=== PATIENT | female | born 1995 | race African-American/Black ===

== ENCOUNTER 2016-12-15 19:54 | Emergency (ER) | payer OTHER ==
[2016-12-15 20:05] VITALS: BP 110/64; PULSE 84; TEMP 98.7; BMI 29.8
--- NOTE | 2016-12-15 21:24 | PDOC ---
History of Present Illness - General Chief Complaint: Vaginal Bleeding Stated Complaint: Vaginal Bleeding Time Seen by Provider: 12/15/16 20:59 History Source: Patient Exam Limitations: No Limitations - History of Present Illness Initial Comments: This is a 21 yo female with h/o sickle cell disease who presents c/o 3 days of heavy vaginal bleeding and lower abdominal cramping after taking two Plan B pills. She describes the pain as 4/10 cramping which is constant, non-radiating , and not alleviated or exacerbated by any factors. She has been bleeding bright red vaginal blood, soaking 3 large pads/day, but this is much heavier than normal for her menstrual periods. She took the Plan B pills on 12/04 and . She has take Plan B like this multiple times and never had vaginal bleeding this bad. Additionally, she notes mild upper back and shoulder pain today which is consistent with her normal sickle cell flares, but she notes frequent crises at baseline and is not concerned about this. She normally takes tramadol at home for these. Past History - Past Medical History Allergies/Adverse Reactions: Allergies Allergy/AdvReac Type Severity Reaction Status Date / Time codeine Allergy Verified 12/15/16 20:02 Home Medications: Ambulatory Orders NK [No Known Home Medication] 12/15/16 Other medical history: sickle cell disease - Psycho/Social/Smoking Cessation Hx Suicidal Ideation: No Smoking History: Never smoked Review of Systems - Review of Systems Constitutional: No: Chills, Fever, Unexplained wgt Loss HEENTM: No: Nose Congestion, Throat Pain Respiratory: No: Cough, Shortness of Breath Cardiac (ROS): No: Chest Pain, Palpitations ABD/GI: Yes: Nausea, Abdominal cramping. No: Constipated, Diarrhea, Vomiting : Yes: Other (vaginal bleeding). No: Burning, Dysuria Musculoskeletal: Yes: Back Pain (mild upper). No: Neck Pain Integumentary: No: Bruising, Rash Neurological: No: Headache, Numbness, Tingling, Weakness Endocrine: No: Unexplained Weight Gain, Unexplained Weight Loss *Physical Exam - Vital Signs Last Vital Signs Temp Pulse Resp BP Pulse Ox 98.7 F 84 18 110/64 100 12/15/16 20:03 12/15/16 20:03 12/15/16 20:03 12/15/16 20:03 12/15/16 20:03 - Physical Exam General Appearance: Yes: Nourished, Other (Pleasant young woman with supportive boyfriend at bedside). No: Apparent Distress HEENT: positive: EOMI, Normal Voice, Hearing Grossly Normal. negative: Scleral Icterus (R), Scleral Icterus (L), Nasal Congestion Neck: positive: Trachea midline, Supple. negative: Tender, Rigid Respiratory/Chest: positive: Lungs Clear, Normal Breath Sounds. negative: Respiratory Distress, Crackles, Rhonchi, Stridor, Wheezing Cardiovascular: positive: Regular Rhythm, Regular Rate. negative: Murmur Gastrointestinal/Abdominal: positive: Normal Bowel Sounds, Tender (minimal suprapubic), Soft. negative: Organomegaly, Pulsatile Mass, Guarding Musculoskeletal: positive: Normal Inspection. negative: CVA Tenderness, Decreased Range of Motion, Vertebral Tenderness Extremity: positive: Normal Capillary Refill, Normal Inspection, Normal Range of Motion. negative: Tender, Cyanosis Integumentary: positive: Normal Color, Dry, Warm. negative: Erythema, Rash, Bruising Neurologic: positive: gravity prospecting observer II-XII NML intact, Fully Oriented, Alert, Normal Mood/ Affect, Normal Response, Motor Strength 5/5 Medical Decision Making - Medical Decision Making 21 yo female with sickle cell disease p/w vaginal bleeding and menstrual cramping after taking Plan B x2. Exam notable only for minimal suprapubic tenderness. DDX includes Plan B medication side effect, UTI, dysmenorrhea, STI/STD, . Ordered are UA and urine beta-hCG, ibuprofen 600 mg. Pt's UA is unremarkable, urine is negative. Her pain is well controlled with ibuprofen here in the ED. She is counseled on common side effects of Plan B, which account for her sxs well. She wishes to be discharged home with plan to f/u with PCP, take ibuprofen for cramping. *DC/Admit/Observation/Transfer Diagnosis at time of Disposition: Dysmenorrhea Adverse effect of drug Qualifiers: Encounter type: initial encounter Qualified Code(s): T88.7XXA - Unspecified adverse effect of drug or medicament, initial encounter - Discharge Dispostion Condition at time of disposition: Stable Admit: No - Referrals Referrals: Marko Villanueva [Primary Care Provider] - - Patient Instructions Printed Discharge Instructions: DI for Dysmenorrhea Additional Instructions: You were seen today for [id number] menstrual bleeding and abdominal cramping about 1.5 weeks after taking two Plan B pills. We checked your urine for a bladder infection, and everything was normal. You also had a negative test here in the ED. We gave you 600 mg ibuprofen and discussed the side effects of Plan B, which can include menstrual irregularities (bleeding like you are currently experiencing), abdominal cramping, nausea, fatigue, etc. We believe all of your symptoms are due to the Plan B and we are not concerned about the amount of blood you have lost. Please take ibuprofen as needed for cramping, and follow up with your regular doctor for any further concerns and for longer-term control planning. Return to the ED for any further emergency concerns. - Attestations Physician Attestion: I, Dr. Stefanie Freeman, attest that this document has been prepared under my direction and personally reviewed by me in its entirety. I further attest, that it accurately reflects all work, treatment, procedures and medical decision -making performed by me.
[2016-12-15] MEDS ORDERED: IBUPROFEN 600 MG TABLET (FP) PO ONE ×2 (22:09→23:33)
--- NOTE | 2016-12-15 23:00 | PDOC ---
Attending Attestation - Resident Resident Name: Stefanie Freeman - ED Attending Attestation I have performed the following: I have examined & evaluated the patient, The case was reviewed & discussed with the resident, I agree w/resident's findings & plan, Exceptions are as noted - HPI HPI: 12/15/16 22:58 21-year-old female with history of sickle cell disease presents to ER with lower abdominal cramping and vaginal bleeding after taking to plan B capsules for post choroidal prophylaxis. Patient denies fever/chills/nausea/vomiting. Patient also complaining of mild upper back pain consistent with her previous mild sickle cell exacerbations. Patient reports that she had run out of her tramadol which she usually uses for pain control. - Physicial Exam PE: 12/15/16 22:59 Patient is awake and alert, afebrile, hemodynamically stable. Serial abdominal exams reveal no focal tenderness, there is no guarding or rebound. There is no CVA tenderness. Lungs are clear. - Medical Decision Making 12/15/16 22:59 Patient is a 21-year-old female with history of sickle cell disease who presents with abdominal cramping and vaginal bleeding take plan B. Symptoms are consistent with plan the side effects. We'll administer NSAIDs. Will obtain UA/ U hCG. If UCG negative, will likely discharge.
[2016-12-15 23:20] LABS: URINE APPEARANCE CLEAR; URINE BILIRUBIN NEGATIVE (NEGATIVE); URINE BLOOD 2+ (NEGATIVE); URINE COLOR STRAW; URINE GLUCOSE (UA) NEGATIVE (NEGATIVE); URINE KETONE NEGATIVE (NEGATIVE); URINE LEUK ESTERASE TRACE (NEGATIVE); URINE NITRITE NEGATIVE (NEGATIVE); URINE PROTEIN NEGATIVE (NEGATIVE); URINE UROBILINOGEN NEGATIVE mg/dL (0.2-1.0)
[2016-12-16 02:25] LABS: URINE BACTERIA RARE /hpf (NONE SEEN); URINE MUCUS RARE; URINE RBC 1 /hpf (0-3); URINE WBC 5 /hpf (3-5)
== END 2016-12-16 00:28 | disposition home or self-care (01) ==
LOC: JER 19:54
DX: N93.8 Other specified abnormal uterine and vaginal bleeding (principal); T38.4X5A Adverse effect of oral contraceptives, initial encounter; N94.6 Dysmenorrhea, unspecified; Y92.038 Other place in apartment as the place of occurrence of the external cause
CPT/HCPCS: 81003; 81015; 84703; 99283-25